=== PATIENT | female | born 1980 | race African-American/Black ===

== ENCOUNTER 2017-02-09 23:05 | Emergency (ER) | payer MEDICAID, OTHER ==
[~2017-02-09] VITALS: Ht 165.1 cm; Wt 44.5 kg
[~2017-02-09 23:05] MED LIST: ALBUTEROL SULF8.5 GM INH; IBUPROFEN600 MG ORAL; LORATADINE10 M1 PO; NORCO 5-325 TA1 EACH ORAL; PROAIR HFA8.5 GM INH
[2017-02-09] MEDS ORDERED: Morphine Sulfate 4mg/ml Inj IVP ONE (23:30)
[2017-02-09] MEDS ORDERED: Ketorolac 30mg Inj IV ONE (23:30)
--- NOTE | 2017-02-09 23:32 | Emergency Room Report ---
History of Present Illness General Chief Complaint: Abdominal Pain Source: Patient Present Illness HPI The patient presents with one hour of right flank and right lower quadrant pain. The pain is severe at this time. She states it's is the same pain when she was diagnosed as having a hernia near her bladder. The hernia was repaired apparently December 20 at [facility]. She's not take any medication tonight for the pain. She denies any fevers, chills, vomiting, diarrhea, dysuria. She does feel nauseated. The pain is 10/10 and burning and constant and radiating into her vaginal area. There is to discharge. Her last period she initially stated was January 13 but then corrected herself and she is not late for her period at this time. She really she's . No chest pain, dyspnea, dizziness, headache, endocrine issues. Allergies: Coded Allergies: No Known Allergies (Unverified , 12/19/12) Patient History Past Medical History: see triage record Past Surgical History: other - hernia repair Social History: Denies: smoking Social History Narrative brought in by cousin Last Menstrual Period: 01/03/2017 Now: No Reviewed Nursing Documentation: PMH: Agreed, PSxH: Agreed Nursing Documentation-PMH Past Medical History: No History, Except For Hx Asthma: Yes - Bronchitis Hx Gastrointestinal Problems: Yes - apendectomy Review of Systems All Other Systems: negative except mentioned in HPI Physical Exam Vital Signs Date Time Temp Pulse Resp B/P Pulse Ox O2 Delivery O2 Flow Rate FiO2 02/09/17 23:11 97.2 74 17 128/78 100 Room Air Sp02 EP Interpretation: reviewed, normal General Appearance: well appearing, no apparent distress, GCS 15 Head: normocephalic Eyes: bilateral eye PERRL, bilateral eye normal inspection ENT: moist mucus membranes Neck: supple Respiratory: lungs clear, normal breath sounds Cardiovascular #1: regular rate, rhythm Cardiovascular #2: 2+ radial (R) Gastrointestinal: normal inspection, normal bowel sounds, no mass, non- distended, no rebound, guarding - minimal RLQ-groin, tenderness Musculoskeletal: back normal, gait/station normal, normal range of motion Neurologic: alert, oriented x3, grossly normal Psychiatric: mood/affect normal Skin: normal inspection, warm/dry, other - well healed surgical scar Medical Decision Making Diagnostic Impression: Primary Impression: Abdominal pain Qualified Codes: R10.31 - Right lower quadrant pain Additional Impression: Status post hernia repair ER Course Patient presents with abdominal pain. She states this is the same type of pain when she had an inguinal hernia. Differential includes appendicitis, ovarian cyst, inguinal hernia, renal stone amongst others. Evaluation will be undertaken with labs, urinalysis and CT abdomen with oral and IV contrast. Labs unremarkable. CT with post surgical changes and cyst L adnexa. Patient improved. No surgical emergency at this time. Patient stable for outpatient observation and treatment. Laboratory Tests Test 02/09/17 23:40 White Blood Count 9.6 K/UL (4.8-10.8) Red Blood Count 4.19 M/UL (4.20-5.40) L Hemoglobin 13.6 G/DL (12.0-16.0) Hematocrit 40.8 % (37.0-47.0) Mean Corpuscular Volume 97 FL (80-99) Mean Corpuscular Hemoglobin 32.6 PG (27.0-31.0) H Mean Corpuscular Hemoglobin Concent 33.5 G/DL (32.0-36.0) Red Cell Distribution Width 12.3 % (11.6-14.8) Platelet Count 244 K/UL (150-450) Mean Platelet Volume 7.7 FL (6.5-10.1) Neutrophils (%) (Auto) 63.2 % (45.0-75.0) Lymphocytes (%) (Auto) 27.2 % (20.0-45.0) Monocytes (%) (Auto) 7.6 % (1.0-10.0) Eosinophils (%) (Auto) 0.4 % (0.0-3.0) Basophils (%) (Auto) 1.6 % (0.0-2.0) Urine Color Pale yellow Urine Appearance Clear Urine pH 6.5 (4.5-8.0) Urine Specific [place] 1.010 (1.005-1.035) Urine Protein Negative (NEGATIVE) Urine Glucose (UA) Negative (NEGATIVE) Urine Ketones Negative (NEGATIVE) Urine Occult Blood 3+ (NEGATIVE) H Urine Nitrite Negative (NEGATIVE) Urine Bilirubin Negative (NEGATIVE) Urine Urobilinogen Normal MG/DL (0.0-1.0) Urine Leukocyte Esterase Negative (NEGATIVE) Urine RBC 2-4 /HPF (0 - 2) H Urine WBC 0-2 /HPF (0 - 2) Urine Squamous Epithelial Cells Moderate /LPF (NONE/OCC) H Urine Bacteria None /HPF (NONE) Urine HCG, Qualitative Negative Sodium Level 138 mEQ/L (135-145) Potassium Level 4.5 mEQ/L (3.4-4.9) Chloride Level 97 mEQ/L (98-107) L Carbon Dioxide Level 28 mEQ/L (20-30) Anion Gap 13 (5-15) Blood Urea Nitrogen 11 mg/dL (7-23) Creatinine 1.0 mg/dL (0.5-0.9) H Estimate Glomerular Filtration Rate > 60 mL/min (>60) Glucose Level 105 mg/dL (74-106) Calcium Level 9.7 mg/dL (8.6-10.2) Total Bilirubin 0.2 mg/dL (0.0-1.2) Aspartate Amino Transferase (AST) 23 U/L (5-40) Alanine Aminotransferase (ALT) 9 U/L (3-33) Alkaline Phosphatase 48 U/L (35-104) Total Protein 7.4 g/dL (6.6-8.7) Albumin 4.5 g/dL (3.5-5.2) Globulin 2.9 g/dL Albumin/Globulin Ratio 1.5 (1.0-2.7) Lipase 47 U/L (< 60) Urine Opiates Screen Negative (NEGATIVE) Urine Barbiturates Screen Negative (NEGATIVE) Phencyclidine (PCP) Screen Negative (NEGATIVE) Urine Amphetamines Screen Negative (NEGATIVE) Urine Benzodiazepines Screen Negative (NEGATIVE) Urine Cocaine Screen Negative (NEGATIVE) Urine Marijuana (THC) Screen Negative (NEGATIVE) CT/MRI/US Diagnostic Results CT/MRI/US Diagnostic Results : Imaging Test Ordered: abd pelvis Impression post op changes, fatty changes liver, L adnexal cyst Last Vital Signs Date Time Temp Pulse Resp B/P Pulse Ox O2 Delivery O2 Flow Rate FiO2 02/10/17 04:16 97.2 87 18 109/80 99 Room Air Status: improved Disposition: HOME, SELF-CARE Condition: Improved Scripts Tramadol Hcl* (ULTRAM*) 50 Mg Tablet 50 MG ORAL Q6H Y for For Pain, #16 TAB 0 Refills Prov: Porter Simms M.D. 02/10/17 Ibuprofen* (MOTRIN*) 600 Mg Tablet 600 MG ORAL Q6H Y for For Pain, #20 TAB Prov: Porter Simms M.D. 02/10/17 Porter Simms M.D. Feb 09, 2017 23:32
[2017-02-09] MEDS ORDERED: Tubing IV Cassette IV ONE (23:41)
[2017-02-09 23:53] LABS: APPEARANCE,URINE CLEAR; KETONES,URINE NEGATIVE (NEGATIVE); LEUKOCYTE ESTERASE ,URINE NEGATIVE (NEGATIVE); NITRITE,URINE NEGATIVE (NEGATIVE); PH,URINE 6.5 (4.5-8.0); PROTEIN,URINE NEGATIVE (NEGATIVE); UROBILINOGEN,URINE NORMAL MG/DL (0.0-1.0)
[2017-02-10 00:02] LABS: ALANINE AMINOTRANSFERASE 9 U/L (3-33); ALBUMIN/GLOBULIN RATIO 1.5 (1.0-2.7); ANION GAP 13 (5-15); ASPARTATE AMINO TRANSFERASE 23 U/L (5-40); CALCIUM 9.7 mg/dL (8.6-10.2); CARBON DIOXIDE 28 mEQ/L (20-30); CHLORIDE 97 mEQ/L (98-107); GLOMERULAR FILTRATION RATE > 60 mL/min (>60); HEMOLYSIS 47; LIPASE 47 U/L (< 60); POTASSIUM 4.5 mEQ/L (3.4-4.9); SODIUM 138 mEQ/L (135-145); TOTAL PROTEIN 7.4 g/dL (6.6-8.7)
[2017-02-10 00:03] LABS: SQUAMOUS EPITHELIAL CELL,UR MODERATE /LPF (NONE/OCC); WBC,URINE 0-2 /HPF (0 - 2)
[2017-02-10 00:07] LABS: BASOPHILS % (AUTO) 1.6 % (0.0-2.0); EOSINOPHILS % (AUTO) 0.4 % (0.0-3.0); LYMPHOCYTES % (AUTO) 27.2 % (20.0-45.0); MEAN CORPUSCULAR HEMOGLOBIN 32.6 PG (27.0-31.0); MEAN CORPUSCULAR HGB CONC 33.5 G/DL (32.0-36.0); MEAN CORPUSCULAR VOLUME 97 FL (80-99); MEAN PLATELET VOLUME 7.7 FL (6.5-10.1); MONOCYTES % (AUTO) 7.6 % (1.0-10.0); NEUTROPHILS % (AUTO) 63.2 % (45.0-75.0); PLATELET COUNT 244 K/UL (150-450); RED BLOOD COUNT 4.19 M/UL (4.20-5.40); RED CELL DISTRIBUTION WIDTH 12.3 % (11.6-14.8); WHITE BLOOD COUNT 9.6 K/UL (4.8-10.8)
[2017-02-10 01:46] VITALS: BP 121/82
[2017-02-10 03:37] VITALS: BP 109/80
[2017-02-10] MEDS ORDERED: Oxycodone/Acetaminophen 5-325 ORAL ONE (03:45)
[2017-02-10] MEDS ORDERED: IBUPROFEN600 MG ORAL (04:09)
[2017-02-10] MEDS ORDERED: TRAMADOL HCL50 MG ORAL (04:09)
[2017-02-10 04:16] VITALS: BP 109/80
--- NOTE | 2017-02-10 08:31 | Diagnostic Imaging Report ---
Indication: ABD PAIN Technique: CT scan of the abdomen and pelvis was performed from the diaphragms to the symphysis pubis with intravenous contrast material and oral contrast material. Biphasic liver scanning was employed. 5 mm sections were generated. Axial, coronal, and sagittal images are presented. Dose: Total Dose Length Product - DLP [address] Dose Index - CTDIvol(s) 11.22 mGy. Comparison: 05/29/2010 Findings: Liver is normal in size. There is a sharply circumscribed 8 mm low-density lesion in the posterior right lobe. Inferior vena cava is prominent. There is periportal low density. This is sharply circumscribed. The spleen is normal. The pancreas is unremarkable. Gallbladder is normal. Adrenal glands are normal. The kidneys are normal. The appendix is not definitely visualized but there is no inflammatory change in the right lower quadrant. The bladder is normal. The uterus is unremarkable. There is some stranding in the right inguinal, likely surgical. The bones are unremarkable. Is a small low-density lesion in the left ovary with a hyperdense rim measuring 1.6 cm. Impression: Stranding in a running region, likely representing previous hernia repair scarring. Small collapsed cyst in left ovary, likely physiologic. Graft small low-density lesion in the liver, too small to characterize. Ultrasound would be helpful for better characterization. Mild periportal edema. Appendix not visualized but no inflammatory change in the right lower quadrant. The above report is concordant with preliminary reading by [employer] . The CT scanner at [facility] is accredited by the [employer] and the scans are performed using protocols designed to limit radiation exposure to as low as reasonably achievable to attain images of sufficient resolution adequate for diagnostic evaluation.
== END 2017-02-10 04:18 | disposition home or self-care (01) ==
LOC: EMR 23:35
DX: R10.9 Unspecified abdominal pain (principal); Z98.890 Other specified postprocedural states; Z90.89 Acquired absence of other organs; R11.0 Nausea; N83.8 Other noninflammatory disorders of ovary, fallopian tube and broad ligament; K76.0 Fatty (change of) liver, not elsewhere classified
CPT/HCPCS: 36415; 74177; 80053; 80300; 81003; 81025; 83690; 85025; 96360; 96374; 96375; 99284; J1885; J2270; J2405; Q9967